=== PATIENT | male | born 1955 | race Two or more races ===

== ENCOUNTER → 2017-06-22 | Emergency (ER) | payer OTHER ==
[~2017-06-22] VITALS: Ht 175.3 cm; Wt 88.0 kg
[~2017-06-22] MED LIST: LIPITOR20 MG; NORVASC5 MG; SYNTHROID75 MCG; ZESTRIL40 M1
== END | disposition home or self-care (01) ==
LOC: ER 15:17
DX: N20.0 Calculus of kidney (principal); R10.84 Generalized abdominal pain

== ENCOUNTER 2017-10-25 11:12 | Outpatient (CLI) | payer OTHER | END 2017-10-25 13:10 | disposition home or self-care (01) | LOC: RAD 11:12 | DX: M25.541 Pain in joints of right hand (principal); M25.531 Pain in right wrist; N20.0 Calculus of kidney; R07.89 Other chest pain ==

== ENCOUNTER → 2019-01-08 | Outpatient (CLI) | payer OTHER | END | disposition home or self-care (01) | LOC: MRI 12:52 | DX: M25.461 Effusion, right knee (principal); M25.561 Pain in right knee; M48.02 Spinal stenosis, cervical region; M54.5 Low back pain | CPT/HCPCS: 72148; 73721 ==

== ENCOUNTER 2019-05-14 09:57 | Outpatient (CLI) | payer OTHER | END 2019-05-14 09:59 | disposition home or self-care (01) | LOC: SONOGRAMA 09:57 | DX: R80.8 Other proteinuria (principal) ==

== ENCOUNTER 2021-03-11 11:15 | Emergency (ER) | payer OTHER ==
[~2021-03-11] VITALS: Ht 177.8 cm; Wt 90.7 kg
[2021-03-11] MEDS ORDERED: SYNTHROID88 MCG PO (11:37)
== END 2021-03-11 14:35 | disposition home or self-care (01) ==
LOC: ER 11:15
DX: M54.2 Cervicalgia (principal); S59.901A Unspecified injury of right elbow, initial encounter; W18.30XA Fall on same level, unspecified, initial encounter; Y92.019 Unspecified place in single-family (private) house as the place of occurrence of the external cause; I10 Essential (primary) hypertension; E03.9 Hypothyroidism, unspecified

== ENCOUNTER 2022-04-11 11:05 | Outpatient (CLI) | payer OTHER ==
[~2022-04-11 11:05] MED LIST changes: +SYNTHROID88 MCG PO
== END 2022-04-11 11:10 | disposition home or self-care (01) ==
LOC: RAD 11:05
PROVIDERS: ATTEND Urology
DX: N20.0 Calculus of kidney (principal)

== ENCOUNTER 2023-05-22 11:40 | Outpatient (CLI) | payer OTHER | END 2023-05-22 11:47 | disposition home or self-care (01) | LOC: RAD 11:40 | PROVIDERS: ATTEND Urology | DX: N20.0 Calculus of kidney (principal); R07.9 Chest pain, unspecified ==

== ENCOUNTER → 2023-05-23 10:12 | Outpatient (CLI) | payer OTHER | END | disposition home or self-care (01) | LOC: EKG 10:12 | PROVIDERS: ATTEND Ophthalmology | DX: I10 Essential (primary) hypertension (principal); R07.9 Chest pain, unspecified ==

== ENCOUNTER 2023-05-29 09:22 | Outpatient (CLI) | payer OTHER | END 2023-05-29 09:35 | disposition home or self-care (01) | LOC: TOM 09:22 | PROVIDERS: ATTEND Urology | DX: N20.0 Calculus of kidney (principal); Z88.5 Allergy status to narcotic agent; Z88.6 Allergy status to analgesic agent ==

== ENCOUNTER 2025-04-13 09:38 | Outpatient (CLI) | payer OTHER | END 2025-04-13 09:42 | disposition home or self-care (01) | LOC: TOM 09:38 | DX: C01 Malignant neoplasm of base of tongue (principal) | CPT/HCPCS: 71260; 74177; Q9965 ==